=== PATIENT | female | born 1940 | race Caucasian/White ===

== ENCOUNTER 2016-04-23 06:43 | Emergency (ER) | payer OTHER ==
[2016-04-23] MEDS ORDERED: NS 1,000 ML IV ONE (08:16)
[2016-04-23] MEDS ORDERED: NS 1,000 ML ONE (08:17)
--- NOTE | 2016-04-23 08:24 | PROVIDER DOCUMENTATION ---
HPI-Abdominal Pain/GI Problem - General Chief Complaint: Nausea/Vomiting Stated Complaint: poss dehydration Time Seen by Provider: 04/23/16 08:16 Allergies/Adverse Reactions: Patient Allergies Allergy/AdvReac Type Severity Reaction Status Date / Time amoxicillin trihydrate * Allergy RED SPOTS Verified 04/23/16 08:01 [From Augmentin] potassium clavulanate * Allergy RED SPOTS Verified 04/23/16 08:01 [From Augmentin] Home Medications: Home Medication List Medication Instructions Recorded Confirmed Last Taken Type Bisoprolol Fumarate 5 mg PO DAILY 05/06/15 04/23/16 04/22/16 07:00 History Levothyroxine [Synthroid] 75 microgm PO DAILY 05/06/15 04/23/16 04/22/16 07:00 History Omeprazole 20 mg PO DAILY 05/06/15 04/23/16 04/22/16 07:00 History - History of Present Illness-ABD Nature of Presenting Problems: Pt getting ready for a colonoscopy at 10 am, but had so much out that she collapsed in the bathroom. After finishing the prep she started vomiting. her had suffered a similar tummy flu several days prior Review of Systems - Adult - REVIEW OF SYSTEMS - ADULT Constitutional: denies: chills, fever Eyes: denies: discharge, blurred vision Ears, Nose, Mouth & Throat: denies: ear pain, sinus problem, throat swelling Cardiovascular: denies: chest pain Respiratory: denies: chronic cough, shortness of breath Gastrointestinal: denies: abdominal pain, difficulty swallowing, other Genitourinary: denies: dysuria, frequent UTI's, hesitency Neurological: denies: ataxia, numbness Psychiatric: reports: no symptoms reported Endocrine: denies: cold intolerance, heat intolerance Hematologic/Lymphatic: denies: low blood count, lymphedema Allergic/Immunologic: denies: eczema, hay fever Past History - Adult - PAST MEDICAL HISTORY-ADULT Review of Records: reports: Nursing Assessment Review, Medications Reviewed Physical Exam-General - PHYSICAL EXAM-ADULT Initial Vital Signs Reviewed: Yes - CONSTITUTIONAL General Appearance: appears well, alert, no apparent distress - EYES Eyes: PERRL/EOMI, pink conjunctivae - HEAD, EARS, NOSE, MOUTH & THROAT HENMT: normocephalic/atraumatic, moist mucous membranes, normal ENT inspection - NECK Neck: non-tender, full range of motion, supple, normal inspection - RESPIRATORY Respiratory: chest non-tender, lungs clear, normal breath sounds, no pleuratic chest pain, no respiratory distress, no accessory muscle use - CARDIOVASCULAR Cardiovascular: normal peripheral pulses, regular rate, rhythm, no edema, no gallop, no JVD, no murmur - CHEST (BREASTS) Chest/Breast: no tenderness - GASTROINTESTINAL (ABDOMEN) Abdominal Exam: normal bowel sounds, non tender, soft - LYMPHATIC Lymphatic: no adenopathy - MUSCULOSKELETAL Back Exam: normal inspection, no CVA tenderness, no vertebral tenderness Extremity: normal range of motion, non-tender - SKIN Integumentary: normal color, normal turgor, warm/dry - 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, grossly normal, no motor/sensory deficits - PSYCHIATRIC Psych/Mental Status: normal mood/affect, normal thought content, normal thought process, oriented x 3 Progress - PLAN OF CARE/RESULTS Progress/Plan/Lab Results: anesthesia cancelled the colonoscopy Vital Signs Temp Pulse Pulse Pulse Pulse Resp BP 04/23/16 12:42 58 L 16 131/77 04/23/16 11:35 57 L 20 141/91 04/23/16 09:55 53 L 18 172/72 04/23/16 08:00 68 72 50 L 04/23/16 07:30 52 L 16 152/98 04/23/16 06:55 97.2 F L 55 L 18 122/71 BP BP BP Pulse Ox 04/23/16 12:42 98 04/23/16 11:35 95 04/23/16 09:55 96 04/23/16 08:00 152/95 159/88 158/79 04/23/16 07:30 98 04/23/16 06:55 100 amoxicillin trihydrate * [From Augmentin] Allergy (Verified 04/23/16 08:01) RED SPOTS potassium clavulanate * [From Augmentin] Allergy (Verified 04/23/16 08:01) RED SPOTS Bisoprolol Fumarate 5 mg PO DAILY 05/06/15 Levothyroxine [Synthroid] 75 microgm PO DAILY 05/06/15 Omeprazole 20 mg PO DAILY 05/06/15 Laboratory 04/23/16 04/23/16 09:04 09:04 WBC 10.93 H RBC 4.97 Hgb 15.1 Hct 44.1 MCV 88.7 MCH 30.4 MCHC 34.2 RDW Std Deviation 12.6 Plt Count 229 MPV 10.0 Immature Gran % (Auto) 0.2 Neut % (Auto) 79.3 H Lymph % (Auto) 15.3 L [place] % (Auto) 4.9 Eos % (Auto) 0.1 Baso % (Auto) 0.2 Immature Gran # (Auto) 0.02 Neut # (Auto) 8.67 H Lymph # (Auto) 1.67 [place] # (Auto) 0.54 Eos # (Auto) 0.01 Baso # (Auto) 0.02 Sodium 133 L Potassium 5.4 H Chloride 98 Carbon Dioxide 19 L Anion Gap 16 BUN 10 Creatinine 0.9 Estimated GFR/1.73 m2 > 60 BUN/Creatinine Ratio 11 Glucose 111 H Calculated Osmolality 266 Calcium 9.2 Magnesium 1.9 Orders Category Date Time Status BMP [BASIC METABOLIC PANEL] [CHEM] Stat Lab 04/23/16 09:04 Completed CBC WITH ELECTRONIC DIFF [HEME] Stat Lab 04/23/16 09:04 Completed MAGNESIUM [CHEM] Stat Lab 04/23/16 09:04 Completed 0.9% Sodium Chloride Inj [Ns] 1,000 ml Med 04/23/16 08:17 Discontinued .ROUTE As Directed 0.9% Sodium Chloride Inj [Ns] 1,000 ml Med 04/23/16 08:16 Discontinued IV 999 mls/hr Atropine Med 04/23/16 08:54 Discontinued 0.5 mg IV NOW ONE Laboratory Tests 04/23/16 04/23/16 09:04 09:04 WBC 10.93 H RBC 4.97 Hgb 15.1 Hct 44.1 MCV 88.7 MCH 30.4 MCHC 34.2 RDW Std Deviation 12.6 Plt Count 229 MPV 10.0 Immature Gran % (Auto) 0.2 Neut % (Auto) 79.3 H Lymph % (Auto) 15.3 L [place] % (Auto) 4.9 Eos % (Auto) 0.1 Baso % (Auto) 0.2 Immature Gran # (Auto) 0.02 Neut # (Auto) 8.67 H Lymph # (Auto) 1.67 [place] # (Auto) 0.54 Eos # (Auto) 0.01 Baso # (Auto) 0.02 Sodium 133 L Potassium 5.4 H Chloride 98 Carbon Dioxide 19 L Anion Gap 16 BUN 10 Creatinine 0.9 Estimated GFR/1.73 m2 > 60 BUN/Creatinine Ratio 11 Glucose 111 H Calculated Osmolality 266 Calcium 9.2 Magnesium 1.9 - REASSESSMENT Reassessment #1 Time Reassessed: 12:45 Status: improving (patient fine to go home) Departure - Departure Time of Disposition Order: 12:50 DIAGNOSIS: Gastroenteritis Disposition: HOME 01 Certified Medical Emergency: Emergent Condition: Stable Additional Instructions: fu with Dr Miramontes to reschedule ED Follow Up Instructions: You have been treated by a care provider in the Emergency Department. These instructions are being provided to you so you can have an understanding of how to care for yourself upon discharge. Upon discharge from the Emergency Department, you are responsible for making arrangements for follow-up care by a physician of your choice. Take all prescribed medications as directed. Return to the Emergency Department immediately for any new or worsening symptoms. You may call the Physician Referral phone number at [phone] to obtain a list of Physicians who are taking new patients. Referrals: Bry Salvador MD [Primary Care Provider] -
[2016-04-23] MEDS ORDERED: ATROPINE IV ONE (08:54)
[2016-04-23 09:23] LABS: MANUAL DIFF NEEDED? NO
[2016-04-23 09:27] LABS: BASO% 0.2 % (0.0-0.8); EOS# 0.01 X1000 (0.0-0.7); EOS% 0.1 % (0.0-10.0); HEMATOCRIT 44.1 % (37.0-47.0); HEMOGLOBIN 15.1 g/dL (12.0-16.0); IMM GRAN# 0.02 X1000 (0.0-0.04); IMM GRAN% 0.2 % (0.0-0.5); LYMPH# 1.67 X1000 (1.2-3.4); LYMPH% 15.3 % (20.5-51.1); MCH 30.4 PG (27-31); MCHC 34.2 g/dL (33-37); MCV 88.7 FL (81-99); MONO# 0.54 X1000 (0.11-0.59); MONO% 4.9 % (1.7-9.3); NEUT% 79.3 % (42.2-75.2); PLT 229 X1000 (130-400); RBC 4.97 XMIL (4.2-5.4)
[2016-04-23 09:49] LABS: AGAP 16; BUN 10 mg/dL (8-22); CALCIUM 9.2 mg/dL (8.8-10.2); CHLORIDE 98 mmol/L (98-107); COSMO 266; MAGNESIUM 1.9 mg/dL (1.5-2.7); POTASSIUM 5.4 mmol/L (3.5-5.1); SODIUM 133 mmol/L (136-145); TCO2 19 mmol/L (25-35)
[2016-04-23 13:42] VITALS: BP 132/75
== END 2016-04-23 13:46 | disposition home or self-care (01) ==
LOC: ED 06:43
DX: K52.9 Noninfective gastroenteritis and colitis, unspecified (principal); R11.2 Nausea with vomiting, unspecified; Z79.899 Other long term (current) drug therapy
CPT/HCPCS: 80048; 83735; 85025; J0461; J7030